=== PATIENT | female | born 1970 ===

== ENCOUNTER 2016-10-06 11:43 | Emergency (ER) | payer SELFPAY ==
[2016-10-06 13:25] LABS: Basophils % (Auto) 0.2 % (0.0-1.8); Eosinophils % (Auto) 0.1 % (0.0-4.3); Hematocrit 32.3 % (30.3-42.9); Hemoglobin 9.8 gm/dl (10.1-14.3); Mean Corpuscular HGB Conc 30 % (30-34); Platelet Count 414 K/mm3 (140-440); Red Cell Distribution Width 17.3 % (13.2-15.2); White Blood Count 12.8 K/mm3 (4.5-11.0)
[2016-10-06 13:30] LABS: Mean Corpuscular Hemoglobin 19 pg (28-32); Mean Corpuscular Volume 63 fl (79-97)
[2016-10-06 13:37] LABS: Alanine Aminotransferase 18 units/L (7-56); Albumin 4.2 g/dL (3.9-5); Albumin/Globulin Ratio 1.2 %; Alkaline Phosphatase 86 units/L (35-129); Anion Gap 21 mmol/L; Blood Urea Nitrogen 6 mg/dL (7-17); Calcium 8.2 mg/dL (8.4-10.2); Carbon Dioxide 20 mmol/L (22-30); Chloride 95.5 mmol/L (98-107); Glucose 128 mg/dL (65-100); Lipase 31 units/L (13-60); Potassium 3.1 mmol/L (3.6-5.0); Sodium 133 mmol/L (137-145); Total Protein 7.8 g/dL (6.3-8.2)
[2016-10-06 14:51] LABS: Bilirubin,Urine NEG (Negative); Blood,Urine LG (Negative); Ketones,Urine NEG (Negative); Leukocyte Esterase,Urine NEG (Negative); Mucus,Urine FEW /HPF; Nitrite,Urine NEG (Negative); Protein,Urine <15 mg/dL mg/dL (Negative); Urobilinogen,Urine < 2.0 mg/dL (<2.0)
[2016-10-06] MEDS ORDERED: NACL 0.9% 1000 ML 2,000 ML IV ONE (17:33)
[2016-10-06] MEDS ORDERED: MAGNESIUM SULFATE 2GM/50ML 2 GM/50 ML BAG IV ONE (17:34)
[2016-10-06] MEDS ORDERED: ANTIVERT PO ONE (17:34)
[2016-10-06] MEDS ORDERED: K-DUR PO ONE (17:34)
--- NOTE | 2016-10-06 18:50 | Emergency Department Report ---
ED General Adult HPI - General Chief complaint: Abdominal Pain Stated complaint: DIZZY,WEAK,N/V Time Seen by Provider: 10/06/16 17:12 Source: patient, family, EMS, RN notes reviewed Mode of arrival: Stretcher Limitations: Language Barrier - History of Present Illness Initial comments: This is a 45-year-old female. She is previously unknown to me. Does not have a primary care doctor. Has a past medical history of hypertension. Shane Gathering Machine Feeder: [phone] Patient is brought to the hospital by EMS for dizziness, nausea and vomiting and general weakness. The patient indicates that she woke up feeling dizzy. She describes the dizziness as a sensation of room spinning. There is no headache, neck pain, chest pain or abdominal pain. Patient indicates that she has not had any tinnitus patient indicates no change in auditory acuity, no recent cold symptoms. Patient denies irritative and obstructive urinary symptoms, indicates that she vomited once or twice, nonbloody and nonbilious. There is no leg pain. There is no leg swelling. No recent trips greater than 4 hours. No recent hospital admissions. Patient indicates no loss or change in vision. No focal extremity weakness or numbness. No recent antibiotic use. EMS documents the patient has been feeling weak and dizzy since the morning. Apparently patient was recently at a hospital with high blood pressure, and was given amlodipine in vice to follow with her primary care doctor. The patient is not actively nauseous at this time, she indicates her symptoms worsen when she attempts to walk. -: Gradual Consistency: intermittent Improves with: rest Worsens with: movement Associated Symptoms: loss of appetite, malaise, nausea/vomiting, weakness - Related Data Previous Rx's Medication Instructions Recorded Last Taken Type Meclizine [Antivert] 25 mg PO TID PRN #20 tablet 10/06/16 Unknown Rx Metoclopramide [Reglan] 10 mg PO QID PRN #30 tablet 10/06/16 Unknown Rx Potassium Chloride 20 meq PO QDAY #7 packet 10/06/16 Unknown Rx Allergies Allergy/AdvReac Type Severity Reaction Status Date / Time No Known Allergies Allergy Verified 10/06/16 12:33 ED Review of Systems ROS: Stated complaint: DIZZY,WEAK,N/V Other details as noted in HPI Constitutional: malaise, weakness Eyes: denies: vision change ENT: denies: throat pain, congestion Cardiovascular: denies: chest pain Gastrointestinal: nausea, vomiting Genitourinary: as per HPI Musculoskeletal: as per HPI Skin: as per HPI Neurological: as per HPI, weakness Psychiatric: anxiety ED Past Medical Hx - Past Medical History Previous Medical History?: No - Surgical History Past Surgical History?: No - Social History Smoking Status: Never Smoker Substance Use Type: None - Medications Home Medications: Home Medications Medication Instructions Recorded Confirmed Last Taken Type Meclizine [Antivert] 25 mg PO TID PRN #20 tablet 10/06/16 Unknown Rx Metoclopramide [Reglan] 10 mg PO QID PRN #30 tablet 10/06/16 Unknown Rx Potassium Chloride 20 meq PO QDAY #7 packet 10/06/16 Unknown Rx ED Physical Exam - General Limitations: Language Barrier General appearance: alert, in no apparent distress - Head Head exam: Present: atraumatic, normocephalic - Eye Eye exam: Present: normal appearance, PERRL, EOMI, other (visual acuity intact to finger counting, color perception, reading at a close distance). Absent: nystagmus - ENT ENT exam: Present: normal exam, normal orophraynx, mucous membranes moist, TM's normal bilaterally, normal external ear exam - Neck Neck exam: Present: normal inspection, full ROM. Absent: tenderness, meningismus - Respiratory Respiratory exam: Present: normal lung sounds bilaterally. Absent: respiratory distress, wheezes, rales, rhonchi, stridor, chest wall tenderness, accessory muscle use, decreased breath sounds, prolonged expiratory - Cardiovascular Cardiovascular Exam: Present: normal rhythm, tachycardia, normal heart sounds. Absent: systolic murmur, diastolic murmur, rubs, gallop - GI/Abdominal GI/Abdominal exam: Present: soft, normal bowel sounds. Absent: distended, tenderness, guarding, rebound, rigid, pulsatile mass - Extremities Exam Extremities exam: Present: normal inspection, full ROM, normal capillary refill. Absent: pedal edema, joint swelling, calf tenderness - Back Exam Back exam: Present: normal inspection, full ROM. Absent: tenderness, CVA tenderness (R), CVA tenderness (L), muscle spasm, paraspinal tenderness, vertebral tenderness - Neurological Exam Neurological exam: Present: alert, oriented X3, normal gait (no pass pointing. Normal dezl-tz-zlem. Negative pronator drift.), other (Extraocular movements intact. Tongue midline. No facial droop. Facial sensation intact to light touch in the V1, V2, V3 distribution bilaterally. 5 and 5 strength in 4 extremities.. Sensation is intact to light touch in 4 extremities.). Absent: motor sensory deficit - Psychiatric Psychiatric exam: Present: normal affect, normal mood - Skin Skin exam: Present: warm, dry, intact, normal color. Absent: rash ED Course Vital Signs 10/06/16 10/06/16 10/06/16 12:34 19:28 21:18 Temperature 97.9 F 98 F Pulse Rate 107 H 97 H 96 H Respiratory 16 16 16 Rate Blood Pressure 150/93 Blood Pressure 143/80 131/75 [Left] O2 Sat by Pulse 98 100 98 Oximetry - Reevaluation(s) Reevaluation #1: 10/06/16 18:50 differential diagnosis: Peripheral vertigo, electrolyte derangement, dehydration, arrhythmia, intracranial structural abdomen mildly Assessment and plan: 45-year-old female with nonspecific resolved peripheral vertigo, has a GCS of 15, NIH score of 0, walks with a steady gait, somewhat tachycardic, somewhat dehydrated, hypokalemic, no pulmonary embolus or DVT risk factors, low risk by well's criteria. I recommended a noncontrast CT scan of the brain to exclude structural intracranial disease, the patient refused. The patient is alert and oriented 3 , exhibits decision-making capacity. She specifically understands the risks of not having the CT scan, including , disability, paralysis, loss of quality of life. This conversation was witnessed by the patient's , as well as her niece. In the meantime, we will give her IV fluids, meclizine, obtain EKG, and reassess. Reevaluation #2: 10/06/16 21:10 patient reassess. Patient feeling better. Patient reinterviewed with digital computer operator; [id number]. Patient continues to walk with a steady gait. Patient continues to refuse CT scan. Patient is going to sign out AGAINST MEDICAL ADVICE. The risks of leaving, including , disability, paralysis, permanent loss of quality of life were explained to the patient using a digital computer operator. The patient indicated understanding. The patient is alert and oriented 3, is free from distracting injury, and exhibits decision-making capacity. The discharge AGAINST MEDICAL ADVICE conversation was witnessed by the patient's . ED Medical Decision Making - Lab Data Result diagrams: 10/06/16 13:02 10/06/16 13:02 Vital Signs 10/06/16 12:34 Temperature 97.9 F Pulse Rate 107 H Respiratory 16 Rate Blood Pressure 150/93 O2 Sat by Pulse 98 Oximetry Lab Results 10/06/16 10/06/16 10/06/16 Range/Units 13:02 13:02 13:02 WBC 12.8 H (4.5-11.0) K/mm3 RBC 5.10 H (3.65-5.03) M/mm3 Hgb 9.8 L (10.1-14.3) gm/dl Hct 32.3 (30.3-42.9) % MCV 63 L (79-97) fl MCH 19 L (28-32) pg MCHC 30 (30-34) % RDW 17.3 H (13.2-15.2) % Plt Count 414 (140-440) K/mm3 Lymph % (Auto) 7.1 L (13.4-35.0) % [place] % (Auto) 2.7 (0.0-7.3) % Eos % (Auto) 0.1 (0.0-4.3) % Baso % (Auto) 0.2 (0.0-1.8) % Lymph # 0.9 L (1.2-5.4) K/mm3 [place] # 0.3 (0.0-0.8) K/mm3 Eos # 0.0 (0.0-0.4) K/mm3 Baso # 0.0 (0.0-0.1) K/mm3 Seg Neutrophils % 89.9 H (40.0-70.0) % Seg Neutrophils # 11.5 H (1.8-7.7) K/mm3 Sodium 133 L (137-145) mmol/L Potassium 3.1 L (3.6-5.0) mmol/L Chloride 95.5 L (98-107) mmol/L Carbon Dioxide 20 L (22-30) mmol/L Anion Gap 21 mmol/L BUN 6 L (7-17) mg/dL Creatinine 0.4 L (0.7-1.2) mg/dL Estimated GFR > 60 ml/min BUN/Creatinine Ratio 15.00 % Glucose 128 H (65-100) mg/dL Calcium 8.2 L (8.4-10.2) mg/dL Magnesium 1.80 (1.7-2.3) mg/dL Total Bilirubin 0.20 (0.1-1.2) mg/dL AST 19 (5-40) units/L ALT 18 (7-56) units/L Alkaline Phosphatase 86 (35-129) units/L Total Protein 7.8 (6.3-8.2) g/dL Albumin 4.2 (3.9-5) g/dL Albumin/Globulin Ratio 1.2 % Lipase 31 (13-60) units/L Urine Color (Yellow) Urine Turbidity (Clear) Urine pH (5.0-7.0) Ur Specific [place] (1.003-1.030) Urine Protein (Negative) mg/dL Urine Glucose (UA) (Negative) mg/dL Urine Ketones (Negative) mg/dL Urine Blood (Negative) Urine Nitrite (Negative) Urine Bilirubin (Negative) Urine Urobilinogen (<2.0) mg/dL Ur Leukocyte Esterase (Negative) Urine WBC (Auto) (0.0-6.0) /HPF Urine RBC (Auto) (0.0-6.0) /HPF U Epithel Cells (Auto) (0-13.0) /HPF Urine Mucus /HPF Urine HCG, Qual (Negative) 10/06/16 Range/Units 14:24 WBC (4.5-11.0) K/mm3 RBC (3.65-5.03) M/mm3 Hgb (10.1-14.3) gm/dl Hct (30.3-42.9) % MCV (79-97) fl MCH (28-32) pg MCHC (30-34) % RDW (13.2-15.2) % Plt Count (140-440) K/mm3 Lymph % (Auto) (13.4-35.0) % [place] % (Auto) (0.0-7.3) % Eos % (Auto) (0.0-4.3) % Baso % (Auto) (0.0-1.8) % Lymph # (1.2-5.4) K/mm3 [place] # (0.0-0.8) K/mm3 Eos # (0.0-0.4) K/mm3 Baso # (0.0-0.1) K/mm3 Seg Neutrophils % (40.0-70.0) % Seg Neutrophils # (1.8-7.7) K/mm3 Sodium (137-145) mmol/L Potassium (3.6-5.0) mmol/L Chloride (98-107) mmol/L Carbon Dioxide (22-30) mmol/L Anion Gap mmol/L BUN (7-17) mg/dL Creatinine (0.7-1.2) mg/dL Estimated GFR ml/min BUN/Creatinine Ratio % Glucose (65-100) mg/dL Calcium (8.4-10.2) mg/dL Magnesium (1.7-2.3) mg/dL Total Bilirubin (0.1-1.2) mg/dL AST (5-40) units/L ALT (7-56) units/L Alkaline Phosphatase (35-129) units/L Total Protein (6.3-8.2) g/dL Albumin (3.9-5) g/dL Albumin/Globulin Ratio % Lipase (13-60) units/L Urine Color Yellow (Yellow) Urine Turbidity Clear (Clear) Urine pH 8.0 H (5.0-7.0) Ur Specific [place] 1.011 (1.003-1.030) Urine Protein <15 mg/dl (Negative) mg/dL Urine Glucose (UA) 50 (Negative) mg/dL Urine Ketones Neg (Negative) mg/dL Urine Blood Lg (Negative) Urine Nitrite Neg (Negative) Urine Bilirubin Neg (Negative) Urine Urobilinogen < 2.0 (<2.0) mg/dL Ur Leukocyte Esterase Neg (Negative) Urine WBC (Auto) 1.0 (0.0-6.0) /HPF Urine RBC (Auto) 13.0 (0.0-6.0) /HPF U Epithel Cells (Auto) 1.0 (0-13.0) /HPF Urine Mucus Few /HPF Urine HCG, Qual Negative (Negative) - EKG Data 10/06/16 21:10 normal sinus, 90 bpm, normal axis, QTC 472 ms, abnormal EKG, not morphologically consistent with, there is no prior for comparison. Critical care attestation.: If time is entered above; I have spent that time in minutes in the direct care of this critically ill patient, excluding procedure time. ED Disposition Clinical Impression: Dizziness Disposition: LEFT AGAINST MEDICAL ADVICE Is pt being admited?: No Does the pt Need Aspirin: No Condition: Undetermined Instructions: Vertigo (ED) Additional Instructions: As we discussed, you have left the hospital/emergency room AGAINST MEDICAL ADVICE. By leaving, you risked , disability, paralysis, permanent loss of quality of life. The ER is open 24 hours a day, 7 days a week. It never closes. Please return to the emergency room right away if and when you change your mind. If you decide not to return to the emergency room, please follow-up with the listed physician referrals as soon as possible. EKG demonstrated nonspecific abnormalities. This should be followed up by her primary care doctor within the next 7-10 days. Potassium was decreased. Take potassium supplementation as directed. , / , , , , 24 , 7 , 7-10 jaisa mumtaz foley keri, danilo chikit salaah ke khilaaph aspataal / aapaatakaaleen kaksh chhod [facility] pema, aap mrtyu, vikalaangata, pakshaaghaat, roel agueroe [place] ke sthaayee nukasaan ka joim utate steven. eeaar din mein 24 ghante, saptaah mein 7 din khula rata [facility]. yah kabhee band nahin hota emily aap apana dimaag [facility] steven to krpaya turant aapaatakaaleen kaksh mein yurys [facility]. emily aap aapaatakaaleen kamare mein vaapas nahin jaane ka nirnay lete steven, to krpaya jald se jald [facility] chikitsak refaral ke [facility] cleve. eekejee ne anaavashyak asaamaanyataon ka trevondawagner bacale 7-10 dinon ke bheetar usake praathamik dekhabhaal chikitsak dvaara isaka paalan lea jaana jose. chantaleshiyalizzy browna nikolay. nirdeshit ke mina mein ky emery Prescriptions: Meclizine [Antivert] 25 mg PO TID PRN #20 tablet PRN Reason: Vertigo Metoclopramide [Reglan] 10 mg PO QID PRN #30 tablet PRN Reason: Nausea Potassium Chloride 20 meq PO QDAY #7 packet Referrals: PRIMARY CARE, [Primary Care Provider] - 3-5 Days NOEL HARDEN MD [Staff Physician] - 3-5 Days [facility] [place] [Provider Group] - 3-5 Days
[2016-10-06] MEDS: KCL 10MEQ/100ML 10 MEQ/100 ML BAG IV SCH ×2 (19:00→20:05)
[2016-10-06] MEDS ORDERED: NACL 0.9% 1000 ML 1,000 ML ONE (20:32)
[2016-10-06 21:18] VITALS: BP 131/75
== END 2016-10-06 21:35 | disposition left against medical advice (07) ==
LOC: ED 11:43
DX: R42 Dizziness and giddiness (principal)
CPT/HCPCS: 36415; 80053; 81001; 81025; 83690; 83735; 85025; 93005; 93010; 96365; 96367; 99284; J3475; J3480; J7030